=== PATIENT | female | born 2000 | race Caucasian/White ===

== ENCOUNTER 2025-08-21 15:46 | Emergency (ER) | payer SELFPAY ==
--- NOTE | ~2025-08-21 | CT_ITS ---
CLINICAL HISTORY: ruq pain CT abdomen and pelvis with contrast Comparison: US - US ABDOMEN LIMITED - 08/21/25 18:50 EDT Findings: Lower thorax: Clear. Liver: Fatty infiltration falciform ligament. No biliary ductal dilatation. Patent portal vein. Gallbladder: Noninflamed gallbladder. Spleen: Normal Pancreas: No solid mass or main duct dilation. Adrenal glands: No nodules. Kidneys: No hydronephrosis or stones. 1.5 cm cyst of the left kidney. Pelvic organs: Normal Peritoneum and Gastrointestinal: No bowel obstruction, pneumoperitoneum, or ascites. Noninflamed appendix. Lymph nodes: No lymphadenopathy. Vessels: No abdominal aortic aneurysm. Bones and soft tissues: Unremarkable. IMPRESSION: No acute CT findings of the abdomen or pelvis. This document has been electronically signed by: Jenny Green MD on 08/21/2025 20:59:23
--- NOTE | ~2025-08-21 | US_ITS ---
CLINICAL HISTORY: [place] Limited abdominal ultrasound Comparison: None available Findings: The common bile duct is normal in diameter, measuring 0.3 cm. No cholelithiasis. No wall thickening or pericholecystic fluid. Negative sonographic Mckeon sign. Impression: Negative for acute cholecystitis. This document has been electronically signed by: Leatha Gutierrez MD on 08/21/2025 19:42:30
--- NOTE | 2025-08-21 16:01 | ED.GENADULT ---
HPI - General Adult General Chief complaint: Nausea/Vomiting/Diarrhea Stated complaint: nauseous/pain right side Time Seen by Provider: 08/21/25 18:15 Source: patient Mode of arrival: ambulatory Limitations: no limitations History of Present Illness ED Provider: Dr. Cardona HPI narrative: 25-year-old female history of GERD presented hospital today for epigastric and right upper quadrant pain. Patient is complaining of some nausea and vomiting associated with this. This has been persistent for the past 2 weeks. She has been on omeprazole in the past. She has stopped taking it due to resolution for gastric reflux. Denies any other complaints at this time. However presents to the ER due to persistence of nausea and right upper quadrant pain. Related Data Allergies Allergy/AdvReac Type Severity Reaction Status Date / Time No Known Allergies Allergy Verified 08/21/25 16:03 Review of Systems Review of Systems: Pertinent review of systems as mentioned in HPI. All other system otherwise negative. [facility] Past Medical History [facility] Narrative: GERD Social History Social History Smoked in Last 30 Days: Yes Substance Use Type: Marijuana Advance Directives: No Advance Directives Information Provided: No Physical Exam ED Exam Exam: General: Pleasant, no distress, interacting appropriately Head: Normacephalic, atraumatic ENT: oral mucosa moist, neck supple, no tracheal deviation Cardiovascular: regular rate, regular rhythm, no murmurs, rubbing, gallops Respiratory: CTAB, no wheeze, rales, rhonchi Gastrointestinal: Soft, non distended, right upper quadrant tenderness, epigastric tenderness on exam Skin: Warm and dry Psychiatric: Appropriate mood and thoughts Vital Signs: Vital Signs - 24 hr 08/21/25 16:02 08/21/25 20:14 Temperature 98 F 97.4 F Pulse Rate 63 60 Respiratory Rate 18 18 Blood Pressure 191/81 H 138/81 Pulse Oximetry 100 98 Oxygen Delivery Method Room Air Room Air BMI result Body Mass Index 68.4 Course Course Course Narrative: Rapid medical screening exam was performed. Patient stable at time of evaluation. 25-year-old female presented hospital today for evaluation of epigastric pain along with nausea and vomiting. This is going for 2 weeks now. Patient states she is waking up with acid in her throat. She has is extremely nauseous has not been eating well for the past 4 days. Josie Cardona, 08/21/25 1602 Reevaluation(s) Reevaluation #1: Patient received in sign-out at change of shift pending CT scan of the abdomen pelvis and disposition. The patient is workup was reviewed including her ultrasound, labs and I reviewed the CT scan that resulted which did not show any acute findings. The patient is quite well appearing with stable vital signs. I discussed her findings with her and she will be discharged to follow up with her outpatient providers and I have referred her to GI. All questions were answered Time: 21:06 Medications Administered Discontinued Medications Generic Name Dose Route Start Last Admin Trade Name Ade PRN Reason Stop Dose Admin Al Hydroxide/Mg Hydroxide 30 ml 08/21/25 16:02 08/21/25 16:35 Magnesium Hydrox/Alum Hydrox 30 Ml Oral.Susp PO 08/21/25 16:03 30 ml ONCE ONE Administration Iohexol 100 ml 08/21/25 20:23 08/21/25 20:24 Iohexol 350 Mg/Ml 100 Ml Infus..Btl IV 08/21/25 20:24 100 ml ONCE ONE Administration Lidocaine HCl 15 ml 08/21/25 16:02 08/21/25 16:35 Lidocaine Hcl Viscous 2 % 15 Ml Solution MUCOUS MEM 08/21/25 16:03 15 ml ONCE ONE Administration Ondansetron HCl 4 mg 08/21/25 16:02 08/21/25 16:06 Ondansetron Odt 4 Mg Tab.Rapdis TRANSLINGU 08/21/25 16:03 4 mg ONCE ONE Administration Medical Decision Making Medical Decision Making [facility] Narrative: 25-year-old female presented hospital today for evaluation of 2 weeks of nausea and vomiting and right upper quadrant pain. I did give patient some GI cocktail and Zofran. Patient stated her symptom has improved from the epigastric source however she is still having right upper quadrant pain. We will plan to obtain ultrasound. However due to patient's body habitus ultrasound may be difficult to see the gallbladder. I will plan to place the patient in for CT imaging to see any other cause of her right upper quadrant pain includin nephrolithiasis or pyelonephritis for or colitis or gastroenteritis. Abdominal lab work will be obtained for the patient at this time. Slight white count of 11. No sign of elevated bilirubin or transaminitis. Differential Diagnosis Differential Diagnoses: The differential diagnosis associated with the presentation includes Gastritis, gastroenteritis, colitis, cholecystitis Lab Data [facility] Lab Attestation statement: I reviewed the patient's lab results. 08/21/25 18:30 08/21/25 18:30 Labs: Lab Results 08/21/25 08/21/25 Range/Units 18:30 18:37 WBC 11.2 H (4.8-10.8) X10*3/uL RBC 5.44 (4.20-5.50) X10*6/uL Hgb 13.5 (12.0-16.0) g/dl Hct 44.1 (37.0-47.0) % MCV 81.1 (80.0-98.0) fL MCH 24.8 L (27.0-33.0) pg MCHC 30.6 L (31.0-35.0) g/dl RDW 14.6 (11.0-16.0) % Plt Count 351 (160-400) X10*3/uL MPV 9.2 L (9.4-12.3) fL Immature Gran % (Auto) 0.2 (0.0-0.4) % Neut % (Auto) 62.9 (45-73) % Lymph % (Auto) 28.3 (20-40) % [place] % (Auto) 6.9 (2-11) % Eos % (Auto) 1.3 (0-4) % Baso % (Auto) 0.4 (0-2) % Lymph # (Auto) 3.2 (1.2-4.9) X10*3/uL [place] # (Auto) 0.8 (0.1-1.2) X10*3/uL Eos # (Auto) 0.2 (0.0-0.4) X10*3/uL Baso # (Auto) 0.1 (0.0-0.2) X10*3/uL Abs Immat Gran (auto) 0.02 (0.00-0.03) X10*3/uL Absolute Neuts (auto) 7.1 (2.0-8.3) x10*3/uL Absolute Nucleated RBC 0.000 (0.0-0.012) X10*3/uL Nucleated RBC % (auto) 0.0 (0.0-0.2) /100WBC Sodium 142 (135-145) mmol/L Potassium 3.7 (3.3-5.1) mmol/L Chloride 107 (96-108) mmol/L Carbon Dioxide 26 (22-29) mmol/L Anion Gap 13 (12-20) BUN 11 (9-16) mg/dL Creatinine 0.74 (0.5-1.4) mg/dL Estim Creat Clear Calc 199.5 Estimated GFR > 60 Random Glucose 84 (60-115) mg/dL Calcium 9.8 (8.4-10.2) mg/dL Total Bilirubin 0.5 (0.0-1.0) mg/dL AST 29 (5-31) U/L ALT 29 (0-31) U/L Alkaline Phosphatase 82 (39-117) U/L Total Protein 7.8 (6.5-8.0) g/dL Albumin 4.6 (3.5-5.0) g/dL Lipase 15 (8-78) U/L Beta HCG, Quant < 2 mIU/mL COVID-19 (GEORGE) Negative (Negative) COVID-19 Clin Com See Note Influenza Type A (MILI) Negative (Negative) Influenza Type B (MILI) Negative (Negative) Influenza A & B Note See Note Radiology Impression Discussion of test interpretation with radiology: I have reviewed the radiologist's reading. Radiologist Impression: Findings: Lower thorax: Clear. Liver: Fatty infiltration falciform ligament. No biliary ductal dilatation. Patent portal vein. Gallbladder: Noninflamed gallbladder. Spleen: Normal Pancreas: No solid mass or main duct dilation. Adrenal glands: No nodules. Kidneys: No hydronephrosis or stones. 1.5 cm cyst of the left kidney. Pelvic organs: Normal Peritoneum and Gastrointestinal: No bowel obstruction, pneumoperitoneum, or ascites. Noninflamed appendix. Lymph nodes: No lymphadenopathy. Vessels: No abdominal aortic aneurysm. Bones and soft tissues: Unremarkable. IMPRESSION: No acute CT findings of the abdomen or pelvis. This document has been electronically signed by: Jenny Green MD on 08/21/2025 20:59:23 Discharge Plan Discharge Clinical Impression: Abdominal pain Patient Disposition: Home, Self-Care Instructions: Abdominal Pain (ED) Additional Instructions: Your workup in the ER today was reassuring. This includes your blood work, your ultrasound of the gallbladder as well as your CT scan of the abdomen pelvis. We did not find any obvious abnormal finding that would explain your pain. I recommend that you follow up with gastroenterology. If your pain persists you may benefit from an outpatient endoscopy Return for new or worsening symptoms Referrals: [facility] [Provider Group, Gastroenterology] Referral Note: abdominal pain Stand Alone Forms: Work/School Release Print Language: Kyrgyz
[2025-08-21 16:02] VITALS: BP 191/81; PULSE 63; RESP 18; TEMP 36.6; O2SAT 100; BMI 68.4
[2025-08-21] MEDS: Magnesium Hydrox/Alum Hydrox 30 ML ORAL.SUSP PO (16:35)
[2025-08-21] MEDS: Lidocaine HCl Viscous 2 % 15 ML SOLUTION MUCOUS MEM (16:35)
[2025-08-21 18:35] LABS: MANUAL DIFF FLAG NO
[2025-08-21 18:36] LABS: Hematocrit 44.1 % (37.0-47.0); Hemoglobin 13.5 g/dl (12.0-16.0); Imm Gran Abs Auto 0.02 X10*3/uL (0.00-0.03); Imm Gran Pct Auto 0.2 % (0.0-0.4); Lymphocytes Absolute Auto 3.2 X10*3/uL (1.2-4.9); Mean Corpuscular HGB Conc 30.6 g/dl (31.0-35.0); Mean Corpuscular Hemoglobin 24.8 pg (27.0-33.0); Mean Corpuscular Volume 81.1 fL (80.0-98.0); NRBC Abs Auto 0.000 X10*3/uL (0.0-0.012); NRBC Pct Auto 0.0 /100WBC (0.0-0.2); Platelet Count 351 X10*3/uL (160-400); Red Blood Count 5.44 X10*6/uL (4.20-5.50); White Blood Count 11.2 X10*3/uL (4.8-10.8)
[2025-08-21 18:50] LABS: Alanine Aminotransferase 29 U/L (0-31); Albumin Level 4.6 g/dL (3.5-5.0); Alkaline Phosphatase 82 U/L (39-117); Anion Gap 13 (12-20); Aspartate Amino Transferase 29 U/L (5-31); Blood Urea Nitrogen 11 mg/dL (9-16); Calcium 9.8 mg/dL (8.4-10.2); Carbon Dioxide 26 mmol/L (22-29); Chloride 107 mmol/L (96-108); Creatinine Clr Calc Pharmacy 199.5; Estimated Glomerular Filt Rate > 60; Lipase 15 U/L (8-78); Potassium 3.7 mmol/L (3.3-5.1); Sodium 142 mmol/L (135-145); Total Protein 7.8 g/dL (6.5-8.0)
[2025-08-21 18:58] LABS: COVID-19 Test Negative (Negative); IDNOW Serial# 55D5AD1C; IDNOW Serial# 58CA691E; Influenza B2 Negative (Negative)
[2025-08-21 20:14] VITALS: BP 138/81; PULSE 60; RESP 18; TEMP 36.3; O2SAT 98
--- OUTSIDE RECORDS SUMMARY | 2025-08-21 20:22 | XMS_ITS | Encounter Summary ---
Author Organization [facility] Address [address] [place] [address] Care Team Providers Care Biofuels Engineering Manager Name Role Phone Gavin Heller MD Primary Care Provider Unavail able Arely Marley MD Primary Care Provider Adelaida vailable Encounter Details Date Type Department Care Team Description 05/12/2011 Area Relief Pilot Report Medical Records [address] [place] [address] Priti Dobbs MD Social History Tobacco Use Types Packs/Day Years Used Date Smoking Tobacco: Passive Smo ke Exposure - Never Smoker Alcohol Use Standard Drinks/Week Comments No 0 (1 standard drink = 0.6 oz pur e alcohol) Sex Assigned at Date Recorded Not on file documented as of this encounter Plan of Treatment Not on file documented as of this encounter Visit Diagnoses Not on filedocumented in this encounter Care Teams Biofuels Engineering Manager Relationship Specialty Start Date End Date Gavin Heller MD PCP - General 12/18/08 06/27/17 Arely Marley MD PCP - General Internal Medicine 06/28/17 documented as of this encounter
--- OUTSIDE RECORDS SUMMARY | 2025-08-21 20:22 | XMS_ITS | Encounter Summary ---
Author Organization [facility] Address [address] [place] [address] Care Team Providers Care Hand Crown Pouncer Name Role Phone Gavin Heller MD Primary Care Provider Unavail able Arely Marley MD Primary Care Provider Adelaida vailable Encounter Details Date Type Department Care Team Description 08/18/2016 Release of Information Medical Records [address] [place] [address] Abstract, Provider Social History Tobacco Use Types Packs/Day Years [...] on filedocumented in this encounter Care Teams Hand Crown Pouncer Relationship Specialty Start Date End Date Gavin Heller MD PCP - General 12/18/08 06/27/17 Arely Marley MD PCP - General Internal Medicine 06/28/17 documented as of this encounter
--- OUTSIDE RECORDS SUMMARY | 2025-08-21 20:22 | XMS_ITS | Encounter Summary ---
Author Organization [facility] Address [address] [place] [address] Care Team Providers Care Neck Fitter Name Role Phone Gavin Tejada MD Primary Care Provider Unavail able Arely Marley MD Primary Care Provider Adelaida vailable Reason for Visit * Reason Onset Date Comments DCF 04/07/2015 Medical update Encounter Details Date Type Department Care Team Description 04/07/2015 Telephone Medicine/Pediatrics - [address] [phone] Gavin Tejada MD DCF (Medical update) Social History Tobacco Use Types Packs/Day Years Used Date Smoking Tobacco: Passive Smo ke Exposure - Never Smoker Alcohol Use Standard Drinks/Week Comments No 0 (1 standard drink = 0.6 oz pur e alcohol) Sex Assigned at Date Recorded Not on file documented as of this encounter Miscellaneous Notes * Telephone Encounter - Gavin Tejada MD - 04/07/2015 4:18 PM EDT No immediate concerns * Telephone Encounter - Patricia Rod L.P.NAleah - 04/07/2015 3:36 PM EDT Called and left a message to return phone call,last [facility] 02/18/14,utd with [facility],needs to bk [facility],routed to dr tejada to review. * Telephone Encounter - Cande Short - 04/07/2015 2:45 PM EDT Name and title of caller: Gayla Hdez : 2000 Age: 15 yr. Is this an active 51A case: Yes. Case is currently active. Message forwarded to nurse to provide information. Message forwarded to nurse for follow up documented in this encounter Plan of Treatment Not on file documented as of this encounter Visit Diagnoses Not on filedocumented in this encounter Care Teams Neck Fitter Relationship Specialty Start Date End Date Gavin Tejada MD PCP - General 12/18/08 06/27/17 Arely Marley MD PCP - General Internal Medicine 06/28/17 documented as of this encounter
--- OUTSIDE RECORDS SUMMARY | 2025-08-21 20:22 | XMS_ITS | Encounter Summary ---
Author Organization [facility] Address [address] [place] [address] Care Team Providers Care Last Turner Name Role Phone Arely Marley MD Primary Care Provider Adelaida vailable Encounter Details Date Type Department Care Team Description 10/22/2019 Release of Information Medical Records [address] [place] [address] Abstract, Provider Social History Tobacco Use Types Packs/Day Years Used Date Smoking Tobacco: Passive Smo ke Exposure - Never Smoker Smokeless Tobacco: Never Alcohol Use Standard Drinks/Week Comments No 0 (1 standard drink = 0.6 oz pur e alcohol) Sex Assigned at Date Recorded Not on file documented as of this encounter Plan of Treatment Not on file documented as of this encounter Visit Diagnoses Not on filedocumented in this encounter Care Teams Last Turner Relationship Specialty Start Date End Date Arely Marley MD PCP - General Internal Medicine 06/28/17 documented as of this encounter
--- OUTSIDE RECORDS SUMMARY | 2025-08-21 20:22 | XMS_ITS ---
Author Name [facility] Organization Unknown Care Team Organization Name Specialty Phone Email Start Date End Da laisha [facility] Twyla [facility] 08/31/20222023
[2025-08-21] MEDS: iohexoL 350 MG/ML 100 ML INFUS..BTL IV (20:24)
[2025-08-21 21:20] VITALS: BP 136/78; PULSE 60; RESP 16; TEMP 36.3; O2SAT 100
== END 2025-08-21 21:25 | disposition home or self-care (01) ==
PROVIDERS: Emergency Provider Student in an Organized Health Care Education/Training Program
DX: R10.11 Right upper quadrant pain (principal); R10.13 Epigastric pain; R11.2 Nausea with vomiting, unspecified; N28.1 Cyst of kidney, acquired; Z03.818 Encounter for observation for suspected exposure to other biological agents ruled out
CPT/HCPCS: 74177; 76705; 80053; 83690; 84702; 85025; 87502; 87635; 99284; Q9967

== ENCOUNTER → 2025-08-21 18:37 | Outpatient (BNV) | payer SELFPAY | PROVIDERS: Emergency Provider Student in an Organized Health Care Education/Training Program; Visit Provider Radiology Diagnostic Radiology | DX: R10.11 Right upper quadrant pain (principal) | CPT/HCPCS: 74177; 76705 ==